=== PATIENT | female | born 1995 | race Caucasian/White ===

== ENCOUNTER 2019-06-12 05:51 | Inpatient (IN) | payer OTHER ==
[~2019-06-12] VITALS: Ht 160 cm; Wt 63.5 kg
[2019-06-12] VITALS (10 sets, daily range): BP systolic 100–125; BP diastolic 57–77
--- NOTE | 2019-06-12 06:07 | NUR ---
PT CAME TO ER BED 2 C/O RIGHT LOWER ABDOMINAL PAIN 3x HOURS AGO. PT STATES THAT SHE HAS NAUSEA AND VOMITING. NO BLOOD NOTED IN THE VOMIT. PAIN UPON PALPATION. AAOX4. LAST BM WAS LAST NIGHT. NO PAIN UPON URINATION. AWAITING MD GARAY.
[2019-06-12 06:14] LABS: APPEARANCE,URINE Clear (CLEAR); BILIRUBIN,URINE Negative (NEGATIVE); BLOOD, URINE Trace-intact Ery/uL (NEGATIVE); COLOR,URINE Yellow (YELLOW); KETONES,URINE Negative (NEGATIVE); LEUKOCYTE ESTERASE ,URINE Negative (NEGATIVE); NITRITE, URINE Negative (NEGATIVE); PH,URINE 5.5 (5.0-8.0); PROTEIN,URINE Negative (NEGATIVE); UGLUCOSE Negative (NEGATIVE); UROBILINOGEN,URINE 0.2 EU/dL (0.2)
[2019-06-12] MEDS ORDERED: ONDANSETRON HCL/PF 4 MG/2 ML VIAL ONE ×2 (06:26→07:33)
[2019-06-12 06:27] LABS: BASOPHILS # (AUTO) 0.1 /CMM (0.0-0.2); BASOPHILS % (AUTO) 0.4 % (0.0-2.0); HEMATOCRIT 40 % (33-45); HEMOGLOBIN 14.1 g/dL (11.5-14.8); LYMPHOCYTES # (AUTO) 1.6 /CMM (0.8-4.8); LYMPHOCYTES % (AUTO) 9.1 % (20.0-44.0); MEAN CORPUSCULAR HGB CONC 35 g/dl (31.0-36.0); MEAN CORPUSCULAR VOLUME 93 fL (82-100); MONOCYTES # (AUTO) 0.8 /CMM (0.1-1.30); MONOCYTES % (AUTO) 4.9 % (2.0-12.0); NEUTROPHILS # (AUTO) 14.8 /CMM (1.8-8.9); NEUTROPHILS % (AUTO) 85.6 % (43.0-81.0); PLATELET COUNT (AUTO) 161 /CMM (150-450); RED BLOOD CELL COUNT(AUTO) 4.27 MIL/uL (4.0-5.2); WHITE BLOOD COUNT (AUTO) 17.3 K/uL (4.3-11.0)
[2019-06-12] MEDS ORDERED: MORPHINE SULFATE INJ 4 MG/ML DISP.SYRIN ONE ×2 (06:27→07:37)
[2019-06-12] MEDS ORDERED: IV NS 0.9% 1,000 ML BAG IV ONE (06:30)
--- NOTE | 2019-06-12 06:33 | NUR ---
PT VOMITTED X 1 EPISODE AND REPORTS NAUSEA. MD MADE AWARE AND RECEIVED VERBAL ORDER TO GIVE ZOFRAN 4MG IV X 1 AND MORPHINE 4MG IV X1 FOR PAIN. ORDERS NOTED AND CARRIED OUT
[2019-06-12 06:37] LABS: CALCIUM, SERUM 9.1 mg/dL (8.5-10.1); CREATININE 0.9 mg/dL (0.6-1.3); POTASSIUM 3.8 mmol/L (3.5-5.1)
--- NOTE | 2019-06-12 06:40 | NUR ---
RADIOLOGY AT BEDSIDE FOR CT
[2019-06-12 06:45] LABS: ALBUMIN 4.3 g/dL (3.4-5.0); BILIRUBIN,DIRECT 0.2 mg/dL (0.0-0.2); BILIRUBIN,TOTAL 0.8 mg/dL (0.2-1.0); TOTAL PROTEIN, SERUM 7.9 g/dL (6.4-8.2)
[2019-06-12 06:51] LABS: RBC,URINE 0-2 /HPF (0-2)
[2019-06-12 06:52] LABS: SQUAMOUS EPITHELIAL CELL,UR Few /HPF (None Seen); WBC,URINE NONE SEEN /HPF (0-3)
[2019-06-12 06:53] LABS: BACTERIA,URINE Rare /HPF (None Seen)
--- NOTE | 2019-06-12 06:55 | NUR ---
BACK FROM RADIOLOGY
[2019-06-12] MEDS ORDERED: ONDANSETRON HCL/PF 4 MG/2 ML VIAL IV ONE (07:00)
[2019-06-12] MEDS ORDERED: MORPHINE SULFATE INJ 10 MG/ML DISP.SYRIN IV ONE (07:00)
[2019-06-12] MEDS ORDERED: PIPERACILLIN /TAZOBACTAM 3.375 G VIAL IV ONE (07:25)
[2019-06-12] MEDS ORDERED: PIPERACILLIN /TAZOBACTAM 3.375 G in IV D5W 50 ML IV ONE (07:30)
--- NOTE | 2019-06-12 07:32 | NUR ---
RECEIVED REPORT FROM DIONICIO PETERS FOR DESMOND, PT IS AAOX4, NOT IN RESPIRATORY DISTRESS, HOOKED TO INSURANCE SALES ASSOCIATE, KEPT RESTED AND COMFORTABLE, WILL CONTINUE TO MONITOR.
--- NOTE | 2019-06-12 07:53 | NUR ---
PANEL FAMILY ASSESSMENT WORKER PAGED
[2019-06-12] MEDS ORDERED: ONDANSETRON HCL/PF - ER 4 MG/2 ML VIAL IV ONE (08:00)
[2019-06-12] MEDS ORDERED: MORPHINE SULFATE INJ 2 MG/ML DISP.SYRIN IV ONE (08:00)
--- NOTE | 2019-06-12 08:30 | NUR ---
wheeled patient via gurney accompanied by friend, EMT and RN in no distress, RN at bedside to assume care.
--- NOTE | 2019-06-12 08:30 | NUR ---
MS RN NOTES PATIENT ARRIVED FROM ER, ALERT, ORIENTED X 3. NO SOB OR ACUTE DISTRESS NOTED. PATIENT RESTING. FRIEND AT BEDSIDE. PERIPHERAL IV INTACT PATENT. PATIENT NPO. AWAITING FOR APPENDECTOMY WITH DR. HARRIS AT 11:00. PATIENT PLACED IN ROOM. CALL LIGHT WITHIN REACH. BED IN LOW LOCKED POSITION. WILL CONTINUE TO MONITOR.
[2019-06-12] MEDS ORDERED: ANESTHESIA TRAY IN PYXIS 1 EA TRAY MC ONE (10:26)
[2019-06-12] MEDS ORDERED: BUPIVACAINE MPF 0.5% W/EPI INJ 30 ML VIAL ONE (10:26)
[2019-06-12] MEDS ORDERED: MIDAZOLAM HCL 2 MG/2ML VIAL ONE (10:48)
[2019-06-12] MEDS ORDERED: ROCURONIUM BROMIDE 50 MG/5 ML ONE (10:48)
[2019-06-12] MEDS ORDERED: FENTANYL PF 100MCG/2ML AMPUL ONE (10:48)
--- NOTE | 2019-06-12 11:00 | NUR ---
MS RN NOTES PATIENT MOVED TO OR FOR SCHEDULED APPENDECTOMY IN STABLE CONDITION.
[2019-06-12] MEDS ORDERED: IV NS 0.9% 1,000 ML IV PRN (12:10)
[2019-06-12] MEDS ORDERED: HYDROMORPHONE 1 MG/1 ML DISP.SYRIN ONE (12:18)
[2019-06-12] MEDS ORDERED: ONDANSETRON HCL/PF 4 MG/2 ML VIAL IVP PRN (12:30)
[2019-06-12] MEDS ORDERED: ACETAMINOPHEN 325 MG TABLET PO PRN (12:30)
[2019-06-12] MEDS ORDERED: Z GUARD REMEDY 2 OZ OINT TP PRN (12:30)
[2019-06-12] MEDS ORDERED: IV D5/0.45 NACL W/20 MEQ KCL 1L IV PRN ×2 (13:00)
[2019-06-12] MEDS ORDERED: ONDANSETRON HCL/PF 4 MG/2 ML VIAL IV PRN (13:00)
[2019-06-12] MEDS ORDERED: MORPHINE SULFATE INJ 2 MG/ML DISP.SYRIN IV PRN (13:00)
[2019-06-12] MEDS: PIPERACILLIN /TAZOBACTAM 3.375 G in IV D5W 100 ML IV SCH ×2 (14:38→21:05)
--- NOTE | 2019-06-12 19:05 | NUR ---
RN MS OPENING NOTES RECEIVED PATIENT IN BED AWAKE ALERT AND ORIENTED X4, RESPIRATIONS EVEN AND UNLABORED WITH EQUAL RISE AND FALL OF CHEST, AT THIS TIME DENIES ANY NEED FOR PAIN MEDICATION, IV SITE TO LEFT AC #20 G INTACT AND PATENT, NO REDNESS, NO INFILTRATION PRESENT, SAFETY PRECAUTIONS IN PLACE, LOW BED AND LOCKED, ORIENTED TO STAFF AND CALL LIGHT AND KEPT WITHIN REACH, INCISION SITES TO ABDOMEN REMAIN CLEAN DRY AND INTACT, FLUIDS OFFERED, ALL NEEDS ATTENDED AT THIS TIME, WILL CONTINUE TO MONITOR.
--- NOTE | 2019-06-12 19:26 | NUR ---
MS RN NOTES PATIENT IN BED RESTING NO SOB OR ACUTE DISTRESS NOTED. PATIENT ALERT, ORIENTED X3. PATIENT S/P APPENDECTOMY TOLERATED WELL, DENIES ANY PAIN. NO ACUTE CHANGES NOTED DURING SHIFT. ALL DUE MEDICATIONS ADMINISTERED. ALL NEEDS MET. ENDORSED CARE TO PM SHIFT.
[2019-06-12] MEDS: HYDROCODONE/APAP 5/325MG 1 EACH TABLET PO PRN (19:44)
--- NOTE | 2019-06-12 19:44 | NUR ---
RN MS NOTES PATIENT COMPLAINT OF PAIN TO ABDOMEN AREA SURGICAL SITE, 09/11 REQUESTING FOR PAIN MEDICATION NORCO PRN OFFERED AGREED, VS WNL NORCO PRN GIVEN ORDERED WILL CONTINUE TO MONITOR FOR EFFECTIVENESS.
[2019-06-13 00:59] VITALS: BP 125/75
[2019-06-13] MEDS: PIPERACILLIN /TAZOBACTAM 3.375 G in IV D5W 100 ML IV SCH (05:07)
--- NOTE | 2019-06-13 06:39 | NUR ---
RN MS CLOSING NOTES PATIENT IN BED SLEEPING BUT EASILY AROUSABLE ALERT AND ORIENTED X4, RESPIRATIONS EVEN AND UNLABORED WITH EQUAL RISE AND FALL OF CHEST, AT THIS TIME DENIES ANY PAIN OR DISCOMFORT, IV SITE TO LEFT AC #20 G INTACT AND PATENT, NO REDNESS, NO INFILTRATION PRESENT, SAFETY PRECAUTIONS IN PLACE, LOW BED AND LOCKED, CALL LIGHT KEPT WITHIN REACH, INCISION SITES TO ABDOMEN REMAIN CLEAN DRY AND INTACT, FLUIDS OFFERED, TOILETING OFFERED SCD'S IN PLACE, ALL NEEDS ATTENDED AT THIS TIME, WILL CONTINUE TO MONITOR AND ENDORSE TO NEXT SHIFT, ALL DUE MEDICATION GIVEN ORDERED, NO ASE NOTED, PAIN MEDICATION NORCO WAS EFFECTIVE, SLEPT WELL.
[2019-06-13 07:28] LABS: BASOPHILS # (AUTO) 0.1 /CMM (0.0-0.2); BASOPHILS % (AUTO) 0.4 % (0.0-2.0); EOSINOPHILS % (AUTO) 0.1 % (0.0-6.0); HEMATOCRIT 34 % (33-45); HEMOGLOBIN 11.8 g/dL (11.5-14.8); LYMPHOCYTES # (AUTO) 2.4 /CMM (0.8-4.8); MEAN CORPUSCULAR HGB CONC 34 g/dl (31.0-36.0); MEAN CORPUSCULAR VOLUME 95 fL (82-100); MONOCYTES # (AUTO) 1.3 /CMM (0.1-1.30); MONOCYTES % (AUTO) 9.7 % (2.0-12.0); NEUTROPHILS # (AUTO) 9.5 /CMM (1.8-8.9); NEUTROPHILS % (AUTO) 71.8 % (43.0-81.0); PLATELET COUNT (AUTO) 128 /CMM (150-450); WHITE BLOOD COUNT (AUTO) 13.2 K/uL (4.3-11.0)
[2019-06-13 07:54] LABS: BILIRUBIN,TOTAL 0.6 mg/dL (0.2-1.0); CALCIUM, SERUM 8.5 mg/dL (8.5-10.1); CREATININE 0.9 mg/dL (0.6-1.3); PHOSPHORUS 3.5 mg/dL (2.5-4.9); POTASSIUM 4.2 mmol/L (3.5-5.1); TOTAL PROTEIN, SERUM 6.1 g/dL (6.4-8.2)
[2019-06-13 08:00] VITALS: BP 115/65
--- NOTE | 2019-06-13 08:00 | NUR ---
RN NOTES RECEIVED PATIENT IN THE BED A/O X3, NO ACUTER RESPIRATORY DISTRESS BREATHING UNLABORED. V/S STABLE, PATIENT WAS COMPLAINING OF PAIN ON ABDOMEN SURGICAL AREA 5/10 PER PAIN SCALE. INCISIONS INTACT NO REDNESS. PATIENT AMBULATORY ENCOURAGED TO AMBULATE TOLERATED. PATIENT TOLERATED BREAKFAST WELL. INFUSING ZOSYN 25 ML/HR ON LEFT AC AREA INTACT, CALL LIGHT WITHIN TO REACH. CONTINUED MONITORING.
[2019-06-13] MEDS: HYDROCODONE/APAP 5/325MG 1 EACH TABLET PO PRN (08:41)
--- NOTE | 2019-06-13 08:41 | NUR ---
rn notes administered narco 5/325 mg po prn for abdominal pain 5/10 per patient request. v/s taken wnl. continued monitoring.
--- NOTE | 2019-06-13 08:47 | NUR ---
RN NOTES SEEN PATIENT BY SURGEON Dr HARRIS, PATIENT WILL DISCHARGE HOME TODAY.
[2019-06-13] MEDS ORDERED: CEFU500T66 PO (11:04)
--- NOTE | 2019-06-13 13:01 | NUR ---
SENIOR QUALITY ANALYST NOTES PATIENT DISCHARGE AT THIS TIME GOING HOME SELF CARE. PATIENT REFUSED PAIN, V/S STABLE, REMOVED IV ACCESS, NO ACUTE RESPIRATORY DISTRESS. MED RECONCILIATION AND DISCHARGE ORDER REVIEWED AND EXPLAINED TO PATIENT, AND MOM. PATIENT VERBALIZED UNDERSTANDING. PATIENT SIGN PAPERWORK. SEEN HOSPITALIST AND PRESCRIPTION HANDED TO THE PATIENT BY SELF VIA [employer] [facility]. PATIENT WILL FOLLOW PRIMARY MD, AND SURGEON IN ONE WEEK. ESCORTED PATIENT TO THE LOBBY FOR SAFETY. PATIENT TEXTILE ARTIST B Y MOTHER NAME NIC PHONE # [phone].
== END 2019-06-13 13:00 | disposition home or self-care (01) | DRG 343 ==
LOC: ER 06:01 → MEDSG2 07:46
PROVIDERS: ADMIT Nurse Practitioner Acute Care; ATTEND Nurse Practitioner Acute Care
PROC: 0DTJ4ZZ Resection of Appendix, Percutaneous Endoscopic Approach (ICD-10-PCS; principal; 2019-06-12)
DX: K35.30 Acute appendicitis with localized peritonitis, without perforation or gangrene (principal); Z87.442 Personal history of urinary calculi
CPT/HCPCS: 36415; 80048-TC; 80053-TC; 80076-TC; 81000-TC; 83690-TC; 83735-TC; 84100-TC; 84703-TC; 85025-TC; 85730-TC; 86850-TC; 87070-TC; 87075-TC; 87081-TC; 87186-TC; 88304-TC; G0378; J1100; J1170; J1885; J2250; J2270; J2405; J2543; J2704; J2710; J3010; J3480; J3490; J7030; J7060